=== PATIENT | female | born 1980 | race Caucasian/White ===

== ENCOUNTER 2017-02-13 09:17 | Emergency (ER) | payer BC, OTHER ==
[2017-02-13 09:20] VITALS: BP 110/84; PULSE 87; TEMP 98.3; BMI 34.3
[2017-02-13] MEDS ORDERED: DIPHTH,PERTUSS(ACELL),TET 0.5 ML DISP.SYRIN IM ONE (09:36)
--- NOTE | 2017-02-13 09:46 | PDOC ---
History of Present Illness - General Chief Complaint: Laceration Stated Complaint: LACERATED RT WRIST Time Seen by Provider: 02/13/17 09:24 History Source: Patient Exam Limitations: No Limitations - History of Present Illness Initial Comments: 02/13/17 09:41 CHIEF COMPLAINT: Superficial laceration to right wrist HISTORY OF PRESENT ILLNESS: Patient is a 36-year-old female history of asthma currently on no medication presents for superficial laceration to right wrist patient states it occurred approximately 10 PM last night. She was putting together a bedframe it slipped and she sustained laceration. She cleansed the area immediately with peroxide, there is no active bleeding upon arrival. Tetanus is not up-to-date. Good range of motion to wrist. 02/13/17 09:46 Severity: Yes: mild Location: reports: other (right wrist) Respiratory Risk Factors: reports: no cause identified Associated Symptoms: reports: denies symptoms Past History - Past Medical History Allergies/Adverse Reactions: Allergies Allergy/AdvReac Type Severity Reaction Status Date / Time No Known Drug Allergies Allergy Verified 02/13/17 09:20 CRABS Allergy Swelling Uncoded 02/13/17 09:20 Home Medications: Ambulatory Orders Azithromycin [Zithromax -] 250 mg PO UTDICT #6 tab 07/31/16 Anemia: No Asthma: Yes Cancer: No Cardiac Disorders: No CVA: No COPD: No CHF: No Dementia: No Diabetes: No GI Disorders: No Disorders: No HTN: No Hypercholesterolemia: No Liver Disease: No Suicide Attempt (Hx): No Seizures: No Thyroid Disease: No - Surgical History Abdominal Surgery: No Appendectomy: Yes Cardiac Surgery: No Cholecystectomy: No Lung Surgery: No Neurologic Surgery: No Orthopedic Surgery: No - Immunization History Immunization Up to Date: Yes - Psycho/Social/Smoking Cessation Hx Anxiety: No Suicidal Ideation: No Smoking History: Never smoked Number of Cigarettes Smoked Daily: 0 Hx Alcohol Use: No Drug/Substance Use Hx: No Substance Use Type: None Hx Substance Use Treatment: No Review of Systems - Review of Systems Constitutional: No: Symptoms Reported Musculoskeletal: No: Symptoms Reported Integumentary: Yes: Other (3 cm superficial laceration to the right wrist, horizontally) Neurological: No: Symptoms reported, Paresthesia, Tingling, Tremors *Physical Exam - Vital Signs Last Vital Signs Temp Pulse Resp BP Pulse Ox 98.3 F 87 20 110/84 99 02/13/17 09:18 02/13/17 09:18 02/13/17 09:18 02/13/17 09:18 02/13/17 09:18 - Physical Exam General Appearance: Yes: Appropriately Dressed. No: Apparent Distress Musculoskeletal: positive: Normal Inspection. negative: Decreased Range of Motion Extremity: positive: Normal Capillary Refill, Normal Range of Motion, Tender, Other (3 cm laceration, superficial to right anterior wrist, horizontal). negative: Swelling, Erythema Integumentary: positive: Other (laceration as noted above). negative: Erythema , Swelling, Ecchymosis Neurologic: positive: Alert, Normal Mood/Affect, Normal Response, Motor Strength 5/5 Procedures - Laceration/Wound Repair Right Anterior Wrist Wound Explored: clean Wound's Depth, Shape: superficial Wound Repaired With: Dermabond Medical Decision Making - Medical Decision Making 02/13/17 09:47 /P: Patient with superficial laceration to right wrist small layer of Dermabond placed over wound, explained to patient that we are unable to suture at this time due to length of occurrence. Patient requested to have area Dermabond that explained that area may have increased risk of infection, she verbalized understanding still requesting. Area superficially feel it is reasonable at this time to place Dermabond to area. Tetanus Boostrix given. Patient to monitor area closely for any increased redness swelling or signs of infection if any present to return immediately to ER *DC/Admit/Observation/Transfer Diagnosis at time of Disposition: Laceration of wrist Qualifiers: Encounter type: initial encounter Laterality: right Qualified Code(s): S61.511A - Laceration without foreign body of right wrist, initial encounter - Discharge Dispostion Disposition: HOME Condition at time of disposition: Good Admit: No - Referrals Referrals: Gucci Mckeon MD [Primary Care Provider] - - Patient Instructions Additional Instructions: Please keep area clean and dry for at least 48 hours, if any redness swelling or signs of infection return to ER Please keep area away from sunlight area may scar
== END 2017-02-13 09:50 | disposition home or self-care (01) ==
LOC: JERFT 09:17
PROC: 0HQDXZZ Repair Right Lower Arm Skin, External Approach (ICD-10-PCS; principal; 2017-02-13)
PROC: 3E0234Z Introduction of Serum, Toxoid and Vaccine into Muscle, Percutaneous Approach (ICD-10-PCS; 2017-02-13)
DX: S61.511A Laceration without foreign body of right wrist, initial encounter (principal); W26.8XXA Contact with other sharp object(s), not elsewhere classified, initial encounter; Y93.E9 Activity, other interior property and clothing maintenance; Y92.032 Bedroom in apartment as the place of occurrence of the external cause
CPT/HCPCS: 90715; 99281-25

== ENCOUNTER 2017-04-23 11:38 | Emergency (ER) | payer BC ==
[2017-04-23 11:59] VITALS: BMI 33.0
--- NOTE | 2017-04-23 13:01 | PDOC ---
History of Present Illness - General Chief Complaint: Pain, Acute Stated Complaint: PCP SENT Time Seen by Provider: 04/23/17 12:37 History Source: Patient - History of Present Illness Timing/Duration: reports: other (today) Past History - Past Medical History Allergies/Adverse Reactions: Allergies Allergy/AdvReac Type Severity Reaction Status Date / Time No Known Drug Allergies Allergy Verified 02/13/17 09:20 CRABS Allergy Swelling Uncoded 02/13/17 09:20 Home Medications: Ambulatory Orders Azithromycin [Zithromax -] 250 mg PO UTDICT #6 tab 07/31/16 Anemia: No Asthma: Yes Cancer: No Cardiac Disorders: No CVA: No COPD: No CHF: No Dementia: No Diabetes: No GI Disorders: No Disorders: No HTN: No Hypercholesterolemia: No Liver Disease: No Seizures: No Thyroid Disease: No - Surgical History Abdominal Surgery: No Appendectomy: Yes Cardiac Surgery: No Cholecystectomy: No Lung Surgery: No Neurologic Surgery: No Orthopedic Surgery: No - Immunization History Immunization Up to Date: Yes - Suicide/Smoking/Psychosocial Hx Smoking History: Never smoked Have you smoked in the past 12 months: No Number of Cigarettes Smoked Daily: 0 Information on smoking cessation initiated: No Hx Alcohol Use: No Drug/Substance Use Hx: No Substance Use Type: None Hx Substance Use Treatment: No Review of Systems - Review of Systems Constitutional: No: Chills, Fever ABD/GI: No: Nausea, Vomiting, Abdominal cramping : No: Dysuria *Physical Exam - Vital Signs Last Vital Signs Temp Pulse Resp BP Pulse Ox 98.9 F 90 20 127/61 100 04/23/17 11:53 04/23/17 11:53 04/23/17 11:53 04/23/17 11:53 04/23/17 11:53 - Physical Exam General Appearance: Yes: Appropriately Dressed. No: Apparent Distress HEENT: positive: Normal Voice Neck: positive: Supple Respiratory/Chest: negative: Respiratory Distress Gastrointestinal/Abdominal: positive: Soft. negative: Tender Integumentary: positive: Dry, Warm Neurologic: positive: Fully Oriented, Alert, Normal Mood/Affect ED Treatment Course - LABORATORY CBC & Chemistry Diagram: 04/23/17 13:00 04/23/17 13:00 - RADIOLOGY Radiology Studies Ordered: Category Date Time Status TRANSVAGINAL US PREG [US] Stat Ultrasound 04/23/17 12:46 Ordered Medical Decision Making - Medical Decision Making 04/23/17 12:55 36 yo F, (s/p 1 spon AB), ~7 weeks by dates, found out she was on blood test at urgent care center a week ago as per patient, but states she has been spotting intermittently since the end of March up till now, no clots. Patient states she is not interested in having another child and was scheduled for a D&C this a.m. at [facility], but states ultrasound was done that showed no IUP and was sent to the ED to rule out possible ectopic. Patient denies abdominal pain, weakness, dizziness, nausea, vomiting, dysuria, fever or chills See exam R/o ectopic Pt stable in ED w/ exam -labs -US 04/23/17 14:09 04/23/17 14:15 Dr. Franky Mckeon currently in ED. States patient to be admitted to his service with Dr Ruiz of OB to be consulted. States M.D. already aware of pt 04/23/17 15:20 US read as thickened endometrium measuring 3cm w/ heterogenous echotexture. No gest sac or pole seen. Findings suggestive of in progress or retained products of conception with blood clots. There is a left adnexal ovarian cyst that most likely represent a corpus luteum cyst. No gross adnexal mass is identified. Dr Ruiz aware. States no need for intervention at this time though very concerned with scant findings given beta of > 39K. Recommend pt return to ED in 2 days for rpt beta. Will inform Dr Mckeon 04/23/17 15:24 04/23/17 15:33 Dr Mckeon aware of US findings, states pt should be discharged to f/u with him on Wednesday for repeat beta. Pt stable for discharge 04/23/17 15:38 04/23/17 15:39 *DC/Admit/Observation/Transfer Diagnosis at time of Disposition: Abnormal Qualifiers: Trimester: first trimester Qualified Code(s): O26.91 - related conditions, unspecified, first trimester - Discharge Dispostion Disposition: HOME Condition at time of disposition: Good - Referrals Referrals: Franky Mckeon MD [Primary Care Provider] - - Patient Instructions Additional Instructions: Your ultrasound is suggestive of either a spontaneous in progress versus retained products in your uterus. There was no specific signs of any ectopic at this time. If symptoms worsen at home and/or you develop abdominal pain, carola return to the ER immediately. Otherwise follow-up with Dr. Mckeon in office at 2pm on Wednesday
[2017-04-23 13:09] LABS: BASOPHIL 0.6 % (0-2.0); EOSINOPHIL 1.4 % (0-4.5); MCH 29.9 pg (25.7-33.7); MCHC 33.8 g/dl (32.0-36.0); MEAN CELL VOLUME 88.5 fl (80-96); MEAN PLT VOLUME 8.4 fl (7.5-11.1); NEUTROPHILS 70.6 % (42.8-82.8); PLATELET COUNT 237 K/MM3 (134-434); RDW 12.9 % (11.6-15.6); WHITE BLOOD COUNT 7.9 K/mm3 (4.0-10.0)
[2017-04-23 13:22] LABS: PH,URINE 5.5 (5.0-8.0); URINE APPEARANCE CLEAR; URINE BILIRUBIN NEGATIVE (NEGATIVE); URINE BLOOD 1+ (NEGATIVE); URINE COLOR LT. YELLOW; URINE GLUCOSE (UA) NEGATIVE (NEGATIVE); URINE KETONE 1+ (NEGATIVE); URINE NITRITE NEGATIVE (NEGATIVE); URINE PROTEIN NEGATIVE (NEGATIVE); URINE UROBILINOGEN 0.2 mg/dL (0.2-1.0)
[2017-04-23 13:29] LABS: URINE LEUK ESTERASE TRACE (NEGATIVE)
[2017-04-23 13:30] LABS: URINE MUCUS MANY; URINE RBC 4 /hpf (0-3); URINE WBC 19 /hpf (3-5)
[2017-04-23 13:36] LABS: ALBUMIN 3.5 g/dl (3.4-5.0); ANION GAP 9 (8-16); BILIRUBIN,TOTAL 0.4 mg/dL (0.2-1.0); CALCIUM 8.7 mg/dL (8.5-10.1); CO2 25 mmol/L (21-32); CREATININE 0.5 mg/dL (0.55-1.02); GLUCOSE,RANDOM 82 mg/dL (74-106); SGOT/AST 11 U/L (15-37); SGPT/ALT 16 U/L (12-78); TOT PROT 6.8 g/dl (6.4-8.2)
[2017-04-23 13:37] LABS: INR 1.21 (0.82-1.09); PROTHROMBIN TIME (PATIENT) 13.4 SEC (9.98-11.88)
[2017-04-23 13:51] LABS: ALK PHOS 64 U/L (45-117)
[2017-04-23 16:05] VITALS: BP 123/80; PULSE 82; TEMP 98.2
--- NOTE | 2017-04-24 09:46 | EKG ---
Test Reason : Blood Pressure : / mmHG Vent. Rate : 070 BPM Atrial Rate : 070 BPM P-R Int : 130 ms QRS Dur : 086 ms QT Int : 380 ms P-R-T Axes : -24 070 040 degrees QTc Int : 410 ms NORMAL SINUS RHYTHM NORMAL ECG NO PREVIOUS ECGS AVAILABLE Confirmed by MD ALEC, LATANYA ([id number]) on 04/24/2017 9:45:53 AM Referred By: Confirmed By:LATANYA MICHAEL MD
== END 2017-04-23 16:05 | disposition home or self-care (01) ==
LOC: JER 11:38
DX: O26.891 Other specified pregnancy related conditions, first trimester (principal); Z3A.01 Less than 8 weeks gestation of pregnancy
CPT/HCPCS: 36415; 76817-TC; 80053; 81003; 81015; 84702; 85025; 85610; 86850; 86900; 86901; 93005; 93010; 99285-25

== ENCOUNTER → 2020-09-24 | Day surgery (SDC) | payer BC | END | disposition home or self-care (01) | LOC: MERGE 09:16 → JRADUS-SUR 09:16 | PROVIDERS: ATTEND Family Medicine | PROC: BU18YZZ Fluoroscopy of Uterus and Fallopian Tubes using Other Contrast (ICD-10-PCS; principal; 2020-09-24) | DX: N97.9 Female infertility, unspecified (principal) | CPT/HCPCS: 58340; 74740-TC-FY; 76000-TC-FY; 84703 ==

== ENCOUNTER 2022-10-20 02:12 | Emergency (ER) | payer BC ==
[2022-10-20 02:25] VITALS: BMI 35.2
[2022-10-20] MEDS ORDERED: methylPREDNISolone NA SUCC 125 MG/2 ML VIAL IVPB ONE (03:06)
[2022-10-20] MEDS ORDERED: ACETAMINOPHEN 1000 MG/100 ML BAG IVPB ONE (03:06)
[2022-10-20] MEDS ORDERED: methylPREDNISolone NA SUCC 125 MG/2 ML VIAL ONE (03:15)
[2022-10-20] MEDS ORDERED: ACETAMINOPHEN INJECTION 100 ML IVPB ONE (03:15)
[2022-10-20] MEDS: ALBUTEROL SO4 2.5/IPRATROPIUM 0.5 INH SOL 3 ML VIAL.NEB. NEB SCH ×2 (03:34→03:35)
[2022-10-20 04:34] LABS: BASO % 0.3 % (0-2.0); EOS % 0.8 % (0-4.5); HEMATOCRIT 35.5 % (32.4-45.2); HEMOGLOBIN 12.3 GM/dL (10.7-15.3); LYMPH % 10.7 % (8-40); MCH 29.2 pg (25.7-33.7); MCHC 34.6 g/dl (32.0-36.0); MEAN CELL VOLUME 84.3 fl (80-96); MEAN PLT VOLUME 8.4 fl (7.5-11.1); MONO % 9.6 % (3.8-10.2); NEUT % 78.6 % (42.8-82.8); PLATELET COUNT 242 10^3/uL (134-434); RBC 4.21 M/mm3 (3.60-5.2); RDW 13.3 % (11.6-15.6); WHITE BLOOD COUNT 8.2 K/mm3 (4.0-10.0)
[2022-10-20 05:05] LABS: CALCIUM 8.2 mg/dL (8.5-10.1)
[2022-10-20 05:06] LABS: ALBUMIN 2.9 g/dl (3.4-5.0); BLOOD UREA NITROGEN 15.4 mg/dL (7-18)
[2022-10-20 05:09] LABS: CREATININE 0.6 mg/dL (0.55-1.3)
[2022-10-20 05:10] LABS: BILIRUBIN,TOTAL 0.2 mg/dL (0.2-1); TOT PROT 6.5 g/dl (6.4-8.2)
[2022-10-20 06:55] VITALS: BP 127/77; PULSE 102; RESP 18; TEMP 98.5
== END 2022-10-20 09:07 | disposition home or self-care (01) ==
LOC: JER 02:12
PROC: 3E0G7GC Introduction of Other Therapeutic Substance into Upper GI, Via Natural or Artificial Opening (ICD-10-PCS; principal; 2022-10-20)
PROC: 3E033NZ Introduction of Analgesics, Hypnotics, Sedatives into Peripheral Vein, Percutaneous Approach (ICD-10-PCS; 2022-10-20)
PROC: 3E033GC Introduction of Other Therapeutic Substance into Peripheral Vein, Percutaneous Approach (ICD-10-PCS; 2022-10-20)
DX: U07.1 COVID-19 (principal); J12.82 Pneumonia due to coronavirus disease 2019
CPT/HCPCS: 0241U-QW; 36415; 71045-TC-FY; 71275-TC; 80053; 84484; 84703; 85025; 85379; 93005; 93010; 99285-25; Q9967

== ENCOUNTER 2024-05-21 04:34 | Emergency (ER) | payer BC ==
[2024-05-21 05:01] VITALS: BP 121/77; PULSE 100; RESP 18; TEMP 98.6; BMI 40.3
== END 2024-05-21 06:58 | disposition home or self-care (01) ==
LOC: JER 04:34
DX: J02.9 Acute pharyngitis, unspecified (principal); R05.9 Cough, unspecified; J06.9 Acute upper respiratory infection, unspecified; Z20.822 Contact with and (suspected) exposure to COVID-19
CPT/HCPCS: 0241U-QW; 71046-TC-FY; 84703; 87651; 99284-25